=== PATIENT | female | born 1995 | race Caucasian/White ===

== ENCOUNTER 2021-02-04 18:25 | Emergency (ER) | payer BC ==
[~2021-02-04] VITALS: Ht 170.2 cm; Wt 68.0 kg
[2021-02-04 18:54] LABS: *BILIRUBIN,URIN NEGATIVE (NEGATIVE); *CLARITY,URINE SLIGHTLY CLOUDY (CLEAR); *COLOR,URINE YELLOW (YELLOW); *KETONES,URINE TRACE (NEGATIVE); *UROBILINOGEN,URINE 0.2 E.U./dl (NORMAL); LEUKOCYTE ESTERASE ,URINE NEGATIVE (NEGATIVE); NITRITE, URINE NEGATIVE (NEGATIVE); PH,URINE 5.5 (5.0-8.0); UGLUCOSE NEGATIVE (NEGATIVE)
[2021-02-04 18:56] LABS: *BLOOD, URINE TRACE (NEGATIVE)
[2021-02-04 18:57] LABS: *URINE HCG, QUAL NEGATIVE (NEGATIVE)
[2021-02-04 19:04] LABS: BACTERIA,URINE NONE SEEN /HPF (NONE SEEN); CALCIUM OXALATE CRYSTALS,UR FEW /HPF (NONE SEEN); RBC,URINE 0-3 /HPF (0-3); SQUAMOUS EPITHELIAL CELL,UR FEW /HPF (NONE SEEN); URINE AMORPHOUS URATE FEW /HPF
--- NOTE | 2021-02-04 19:13 | NUR ---
Assumed care of patient from day shift GENEVA Lyn.
--- NOTE | 2021-02-04 19:20 | NUR ---
Note undone in ED - 02/04/21 at 1952 by SHANTEL Patient AAOx4. complain of constant abdominal pain 11/15. Stated she took Motrin at home around 2pm today. Informed Dr. Layton. Addendum: 02/04/21 at 1951 by SHANTEL Brewer Amendment [email or web address] in ED - 02/04/21 at 1952 by SHANTEL Brewer Time at 0740
--- NOTE | 2021-02-04 19:22 | NUR ---
Patient back to room from X-ray.
[2021-02-04 19:32] LABS: HEMATOCRIT 40.6 % (31.2-41.9); MEAN CORPUSCULAR HEMOGLOBIN 31.1 uug (24.7-32.8); MEAN CORPUSCULAR VOLUME 90.5 fL (75.5-95.3); PLATELET COUNT (AUTO) 207 K/uL (179-408)
[2021-02-04 19:39] LABS: CREATININE 1.1 mg/dL (0.6-1.3); POTASSIUM 3.8 mmol/L (3.5-5.1)
[2021-02-04 19:45] LABS: BILIRUBIN,DIRECT 0.1 mg/dL (0.0-0.2); BILIRUBIN,TOTAL 0.4 mg/dL (0.2-1.0); TOTAL PROTEIN, SERUM 7.8 g/dL (6.4-8.2)
--- NOTE | 2021-02-04 19:45 | NUR ---
Patient AAOx4. Complain of constant abdominal pain 11/15. Stated she took Motrin at home around 2pm today. Informed Dr. Layton.
[2021-02-04] MEDS ORDERED: OXYCODONE/APAP 5-325 MG TABLET ONE (19:56)
[2021-02-04] MEDS ORDERED: OXYCODONE/APAP 5-325 MG TABLET PO ONE (20:00)
--- NOTE | 2021-02-04 20:23 | NUR ---
Dr. Layton at bedside.
[2021-02-04] MEDS ORDERED: MAGNESIUM CITRATE 296 ML BOTTLE PO ONE (21:00)
[2021-02-04] MEDS ORDERED: DOCU250C14 PO (21:08)
[2021-02-04] MEDS ORDERED: BISA-79 PO (21:08)
[2021-02-04] MEDS ORDERED: BISA10SU61 RC (21:08)
[2021-02-04] MEDS ORDERED: MAGNESIUM CITRATE 296 ML BOTTLE ONE (21:13)
--- NOTE | 2021-02-04 21:14 | NUR ---
Patient discharged to home in stable condition. Written and verbal after care instructions given. Patient verbalizes understanding of instructions. Stressed follow up or return to ER for worsening s/s. Patient ambulated from the ER with steady gait. All belongings with patient.
[2021-02-04 21:15] VITALS: BP 112/87
== END 2021-02-04 21:14 | disposition home or self-care (01) ==
LOC: ER 18:25
DX: K59.00 Constipation, unspecified (principal); E03.9 Hypothyroidism, unspecified; R82.81 Pyuria; Z87.442 Personal history of urinary calculi
CPT/HCPCS: 36415; 74021; 83690; 84703; 85025; 87086; A4663